=== PATIENT | male | born 1965 | race Caucasian/White ===

== ENCOUNTER 2020-10-06 07:39 | Outpatient (REF) | payer OTHER, SELFPAY ==
[2020-10-06 08:11] LABS: COVID-19 Test Negative (Negative); IDNOW Serial# 55D5AD1C
== END 2020-10-06 07:40 | disposition home or self-care (01) ==
LOC: HO.LAB 07:39
PROVIDERS: Visit Provider Internal Medicine
DX: Z20.822 Contact with and (suspected) exposure to COVID-19 (principal)
CPT/HCPCS: 36415; 87635; C9803

== ENCOUNTER 2020-11-06 14:13 | Outpatient (REF) | payer OTHER, SELFPAY ==
[2020-11-06 14:46] LABS: COVID-19 Test Negative (Negative); IDNOW Serial# 55D5AD1C
== END 2020-11-06 14:14 | disposition home or self-care (01) ==
LOC: HO.LAB 14:13
PROVIDERS: Visit Provider Internal Medicine
DX: Z20.822 Contact with and (suspected) exposure to COVID-19 (principal)
CPT/HCPCS: 87635; C9803; U0003; U0005

== ENCOUNTER 2020-11-18 07:48 | Outpatient (REF) | payer OTHER, SELFPAY ==
[2020-11-18 08:06] LABS: COVID-19 Test Negative (Negative)
== END 2020-11-18 07:49 | disposition home or self-care (01) ==
LOC: HO.LAB 07:48
PROVIDERS: Visit Provider Internal Medicine
DX: Z20.822 Contact with and (suspected) exposure to COVID-19 (principal)
CPT/HCPCS: 36415; 87635; C9803